=== PATIENT | female | born 1985 | race Two or more races ===

== ENCOUNTER 2018-12-28 23:32 | Emergency (ER) | payer MEDICAID ==
[~2018-12-28] VITALS: Ht 172.7 cm; Wt 145.1 kg
[2018-12-29 02:12] VITALS: BP 113/49
== END 2018-12-29 05:18 | disposition left against medical advice (07) ==
LOC: ER 23:38
DX: S61.012A Laceration without foreign body of left thumb without damage to nail, initial encounter (principal); Z53.21 Procedure and treatment not carried out due to patient leaving prior to being seen by health care provider; W26.0XXA Contact with knife, initial encounter; Y93.89 Activity, other specified; Y92.89 Other specified places as the place of occurrence of the external cause; Y99.8 Other external cause status